=== PATIENT | male | born 1950 | race African-American/Black ===

== ENCOUNTER 2018-12-23 09:30 | Inpatient (IN) | payer MEDICARE, MEDICAID ==
[2018-12-23 10:15] LABS: #Lymphocytes 0.8 thou/uL (1.20-3.40); #Monocytes 0.3 thou/uL (0.11-0.59); #Neutrophils 4.6 thou/uL (1.40-6.50); %Basophils 0.7 % (0.0-1.0); %Eosinophils 0.7 % (0.0-10.0); %Lymphocytes 13.9 % (21.0-51.0); %Monocytes 4.7 % (0.0-10.0); Hemoglobin 13.2 g/dL (14.0-18.0); Mean Corpuscular HGB CONC 34.2 g/dL (32.0-36.0); Mean Corpuscular Hemoglobin 32.6 pg (27.0-31.0); Mean Corpuscular Volume 95.5 fL (78.0-98.0); Mean Platelet Volume 6.3 fL (7.4-10.4); Platelet Count 249 thou/uL (130-400); RBC Distribution Width 11.9 % (11.5-14.5); Red Blood Cell (RBC) Count 4.06 mill/uL (4.70-6.10); White Blood Cell (WBC) Count 5.8 thou/uL (4.8-10.8)
--- NOTE | 2018-12-23 10:18 | RAD ---
EXAM: Portable chest PROVIDED CLINICAL HISTORY: Altered mental status COMPARISON: None FINDINGS: Cardiac and mediastinal silhouette is within normal limits. No focal consolidation, pleural fluid or pneumothorax evident. IMPRESSION: No evidence for an acute cardiopulmonary process.
[2018-12-23 10:29] LABS: ALT (SGPT) 41 U/L (8-55); AST (SGOT) 49 U/L (5-34); Acetaminophen Less than 6.0 mcg/mL (10.0-30.0); Alcohol Less than 10 mg/dL (Less than 10); Alkaline Phosphatase 86 U/L (40-110); Anion Gap 19 mmol/L (10-20); BUN (Urea Nitrogen) 22 mg/dL (8.4-25.7); Bilirubin, Total 0.4 mg/dL (0.2-1.2); Calc. Creatinine Clearance 0 mL/min (70-130); Calcium 9.3 mg/dL (7.8-10.44); Carbon Dioxide 21 mmol/L (22-29); Chloride 98 mmol/L (98-107); Estimated GFR-MDRD 63; Globulin 3.6 g/dL (2.4-3.5); Glucose 82 mg/dL (70-105); Lipase 34 U/L (8-78); Protein, Total 7.6 g/dL (6.0-8.3); Salicylate Less than 8.0 mg/dL (15.0-30.0); Sodium 134 mmol/L (136-145)
[2018-12-23 10:47] LABS: CKMB 19.6 ng/mL (0-6.6)
[2018-12-23] MEDS ORDERED: Aspirin Chewable 81 MG TAB ONE (11:06)
--- NOTE | 2018-12-23 11:07 | CT ---
EXAM: CT Brain WO Con PROVIDED CLINICAL HISTORY: Altered mental status COMPARISON: None FINDINGS: Postoperative changes of prior left temporal craniectomy redemonstrated. Multiple surgical clips are associated with this region, producing beam hardening artifact that limits evaluation. There is no evidence for hydrocephalus. Encephalomalacia involving portions of the temporal and left occipital re gion are suspected. There is no evidence for mass-producing intracranial hemorrhage. 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 Areas of diminished attenuation involving the left frontal and right parietal white matter compatible with age-indeterminate ischemia. IMPRESSION: Limited study without evidence for mass-producing intracranial hemorrhage.
[2018-12-23] MEDS ORDERED: Acetaminophen 325 MG TAB PO PRN (11:40)
[2018-12-23] MEDS ORDERED: Ondansetron PF 4 MG/2 ML Vial IVP PRN (11:40)
[2018-12-23] MEDS ORDERED: Bisacodyl 10 MG SUPP PR PRN (11:40)
[2018-12-23] MEDS ORDERED: Senokot S 8.6-50 MG TAB PO PRN (11:40)
[2018-12-23] MEDS ORDERED: Guaifenesin DM 100-10/5 ML UDCUP PO PRN (11:40)
[2018-12-23] MEDS ORDERED: Morphine 2 MG/ML SYRINGE SLOW IVP PRN (11:40)
[2018-12-23] MEDS ORDERED: Multivitamins, Adult 10 ML, Folic Acid 1 MG, Thiamine HCl 100 MG in Dextrose 5 %-0.45 %... IV SCH (12:00)
--- NOTE | 2018-12-23 12:17 | HP ---
REASON FOR ADMISSION: Altered mental state, rhabdomyolysis, hypothermia. HISTORY OF PRESENT ILLNESS: Please note the patient is not oriented and majority of this history is obtained by talking to ER physician and EMS records. The patient does not know his name nor is he oriented. He was found sitting in front of the [facility]. [place] [employer] called EMS, and the patient was brought here. He is disheveled at present. He is smelling of urine. He has no complaints of any aches or pains. His temperature was 94 axillary on arrival. He is currently on a Omar Hugger and slowly getting rewarmed. He is seen moving both upper extremities freely. He does not follow verbal stimuli. He does move his head and neck freely and follows me around the room. 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 CURRENT MEDICATIONS: Not known. ALLERGIES: NOT KNOWN. PERSONAL AND FAMILY HISTORY: Cannot be obtained as the patient is not oriented at present. REVIEW OF SYSTEMS: Cannot be obtained as the patient is not oriented. PHYSICAL EXAMINATION: GENERAL: The patient is approximately around 50 to 60 years old, who is unknown at present. He is in acute distress from shivering. VITAL SIGNS: Blood pressure 116/86, pulse 66 per minute, respiratory rate 18 per minute, temperature on arrival was 94.7 axillary, saturating 98% on room air. NECK: Supple. No elevated JVD. HEENT: Eyes; extraocular muscles intact. 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 Oral cavity, mucous membranes are dry. No exudates or congestion. CARDIOVASCULAR SYSTEM: S1 and S2 heard. Regular rhythm. RESPIRATORY SYSTEM: Air entry 1+ bilateral. Scattered rhonchi plus bilateral. No rales or wheezes. ABDOMEN: Soft. Bowel sounds heard. No tenderness, rigidity, or guarding. EXTREMITIES: No peripheral edema or calf tenderness. VASCULAR SYSTEM: Peripheral pulses 1+ bilateral. No ischemic ulcerations or gangrene. CENTRAL NERVOUS SYSTEM: No gross focal motor deficits noted. PSYCHIATRIC SYSTEMS: Cannot be assessed as the patient is not oriented at present. LABORATORY DATA: EKG done shows sinus rhythm at 69 beats per minute. There is poor R-wave progression seen and mild LVH. White count of 5, hemoglobin 13, hematocrit 38, platelet count is 249, MCV is 95 with 80% neutrophils. Sodium 134, serum bicarb 21, BUN 22, creatinine 1.1, serum glucose 82. AST 49, ALT 41, alkaline phosphatase 86, ammonia levels of 39. CK levels 1038. CK-MB 19.6. Troponin I 0.06. Albumin is 4.0. Lipase is 34. TSH 1.52. Plasma alcohol less than 10. Urinalysis and urine drug screen are pending at present. CLINICAL IMPRESSION AND PLAN: The patient will be admitted to telemetry for hypothermia, acute encephalopathy, rhabdomyolysis. He will be on D5 water to alternate with a banana bag. Urinalysis and urine drug screen will be shortly obtained. It is unclear the exact nature of his altered mental state at present. He has rhabdomyolysis and will be aggressively hydrated. The patient is also getting rewarmed. His initial temperature was 94 degrees on arrival. He will be on nitro paste half inch q.8 hourly and aspirin 81 mg daily. We will also place him on DuoNeb. Echo with 2D Doppler for LV function, lipid profile in the morning, and we will follow serial troponins. He will be on liquid diet for now until the patient is fully oriented. Physical Therapy, Occupational Therapy, and Case Management consultations will be requested. Case Management especially for identification purposes and to know whereabouts of his relatives for discharge planning. Job ID: [id number] MTDD
[2018-12-23 14:15] VITALS: BMI 24.3
[2018-12-23 14:28] LABS: Bacteria/HPF 1+ HPF (None Seen); Bilirubin Negative (Negative); Blood, Urine Trace (Negative); Clarity Clear (Clear); Glucose, Urine (Dipstick) Normal (Negative); Leukocyte Negative Leu/uL (Negative); Nitrite Negative (Negative); Protein, Urine (Dipstick) 100 mg/dL (Neg-Trace); RBC/HPF 0-3 HPF (0-3); Squamous Epithelial 0-3 HPF (0-3); Urobilinogen Normal mg/dL (Less than 2); WBC/HPF 0-3 HPF (0-3)
[2018-12-23 14:29] LABS: Urine Culture Reflex Yes Yes
[2018-12-23 14:33] LABS: Amphetamine Not Detected (NotDetected); Barbiturates Screen Not Detected (NotDetected); Benzodiazepine Screen Not Detected (NotDetected); Cocaine Metabolite Screen Not Detected (NotDetected); Medtox Control Line Valid? VALID (VALID); Medtox Reader # READER 1; Methadone Not Detected (NotDetected); Methamphetamine Not Detected (NotDetected); Opiate Screen Not Detected (NotDetected); Oxycodone Screen Not Detected (NotDetected); Phencyclidine (PCP) Not Detected (NotDetected); THC/Cannabinoid Screen Not Detected (NotDetected); Tricyclic Screen Not Detected (NotDetected)
[2018-12-23 14:59] LABS: Troponin I 0.408 ng/mL (< 0.028)
[2018-12-23] MEDS: Nitroglycerin 2% Ointment 1 INCH/1 GM Packet TOP SCH ×2 (15:52→21:15)
[2018-12-23 16:52] LABS: Troponin I 0.537 ng/mL (< 0.028)
[2018-12-23] MEDS: Dextrose 5 % And 0.9 % NaCl 1,000 ML IV SCH (19:06)
[2018-12-23] MEDS: Famotidine 20 MG TAB PO SCH (21:15)
[2018-12-24 06:00] LABS: #Eosinphils 0.1 thou/uL (0.0-0.7); #Lymphocytes 1.7 thou/uL (1.20-3.40); #Monocytes 0.4 thou/uL (0.11-0.59); %Basophils 0.6 % (0.0-1.0); %Eosinophils 1.5 % (0.0-10.0); %Lymphocytes 40.7 % (21.0-51.0); %Monocytes 10.2 % (0.0-10.0); Hemoglobin 11.7 g/dL (14.0-18.0); Mean Corpuscular HGB CONC 33.8 g/dL (32.0-36.0); Mean Corpuscular Hemoglobin 32.5 pg (27.0-31.0); Mean Platelet Volume 6.6 fL (7.4-10.4); Platelet Count 237 thou/uL (130-400); RBC Distribution Width 12.1 % (11.5-14.5); Red Blood Cell (RBC) Count 3.61 mill/uL (4.70-6.10); White Blood Cell (WBC) Count 4.3 thou/uL (4.8-10.8)
[2018-12-24 06:09] LABS: ALT (SGPT) 27 U/L (8-55); AST (SGOT) 38 U/L (5-34); Albumin 3.6 g/dL (3.5-5.0); Alkaline Phosphatase 77 U/L (40-110); Anion Gap 12 mmol/L (10-20); BUN (Urea Nitrogen) 24 mg/dL (8.4-25.7); Bilirubin, Total 0.4 mg/dL (0.2-1.2); Calc. Creatinine Clearance 58 mL/min (70-130); Calcium 8.7 mg/dL (7.8-10.44); Carbon Dioxide 25 mmol/L (22-29); Cardiac Risk 3.8 (Less than 4.5); Chloride 105 mmol/L (98-107); Cholesterol 182 mg/dl (< 200 Desired); Estimated GFR-MDRD 65; Globulin 3.1 g/dL (2.4-3.5); Glucose 91 mg/dL (70-105); HDL Cholesterol 48 mg/dL (>60 Neg Risk); LDL Cholesterol, Calculated 117 mg/dL; Protein, Total 6.7 g/dL (6.0-8.3); Sodium 138 mmol/L (136-145); Triglycerides 87 mg/dL (Less than 150)
[2018-12-24] MEDS: Nitroglycerin 2% Ointment 1 INCH/1 GM Packet TOP SCH (06:16)
[2018-12-24] MEDS: Dextrose 5 % And 0.9 % NaCl 1,000 ML IV SCH (06:24)
[2018-12-24] MEDS ORDERED: FLU VACC QS2019-20(6MOS UP)/PF 60 MCG/0.5 ML SYRINGE IM ONE (09:00)
[2018-12-24] MEDS: Enoxaparin Sodium 40 MG/0.4 ML SYRINGE SC SCH (09:24)
[2018-12-24] MEDS: Aspirin Chewable 81 MG TAB PO SCH (09:25)
[2018-12-24] MEDS: Famotidine 20 MG TAB PO SCH ×2 (09:25→20:42)
[2018-12-24] MEDS: Metoprolol Tartrate 25 MG TAB PO SCH ×2 (09:25→20:42)
--- NOTE | 2018-12-24 11:15 | PDOC.HOSPP ---
- Subjective Encounter Date: 12/24/18 Encounter Time: 08:20 Subjective: awakens easily, ate his dinner well per staff his name is Frankie León has caregivers who make meals for him and he has a place to stay per staff is moving all extremities - Objective Vital Signs & Weight: Vital Signs (12 hours) Temp Pulse Resp BP Pulse Ox 12/24/18 08:00 98.5 F 59 L 16 99 12/24/18 07:22 65 16 100 12/24/18 04:00 97.5 F L 68 16 153/95 H 98 12/24/18 00:00 97.9 F 70 20 156/98 H 97 12/23/18 23:45 66 16 Weight Weight 155 lb 9.6 oz Result Diagrams: 12/24/18 05:19 12/24/18 05:19 Hospitalist ROS - Medication Medications: Active Medications Generic Name Dose Route Start Last Admin Trade Name Freq PRN Reason Stop Dose Admin Albuterol/Ipratropium 3 ml 12/23/18 13:00 12/24/18 07:22 Duoneb NEB 3 ml [id number] WILL Administration Aspirin 81 mg 12/24/18 09:00 12/24/18 09:25 Aspirin Chewable PO 81 mg DAILY WILL Administration Enoxaparin Sodium 40 mg 12/24/18 09:00 12/24/18 09:24 Lovenox SC 40 mg 0900 WILL Administration Famotidine 20 mg 12/23/18 21:00 12/24/18 09:25 Pepcid PO 20 mg BID WILL Administration Metoprolol Tartrate 25 mg 12/24/18 09:00 12/24/18 09:25 Lopressor PO 25 mg BID WILL Administration - Exam General Appearance: NAD, awake alert Eye: anicteric sclera Eye - other findings: right eye blindness ENT: no oropharyngeal lesions, moist mucosa Neck: supple, no JVD Heart: RRR, no murmur Respiratory: no wheezes, no rales Gastrointestinal: soft, non-tender, non-distended, normal bowel sounds Extremities: no cyanosis, no edema Neurological: cranial nerve grossly intact, no focal deficits Hosp A/P (1) Hypothermia Code(s): T68.XXXA - HYPOTHERMIA, INITIAL ENCOUNTER Status: Resolved (2) Rhabdomyolysis Code(s): M62.82 - RHABDOMYOLYSIS Status: Acute (3) Acute metabolic encephalopathy Code(s): G93.41 - METABOLIC ENCEPHALOPATHY Status: Resolved (4) HTN (hypertension) Code(s): I10 - ESSENTIAL (PRIMARY) HYPERTENSION Status: Acute Qualifiers: Hypertension type: essential hypertension Qualified Code(s): I10 - Essential (primary) hypertension (5) Intellectual disability Code(s): F79 - UNSPECIFIED INTELLECTUAL DISABILITIES Status: Chronic (6) H/O: CVA (cerebrovascular accident) Code(s): Z86.73 - PRSNL HX OF TIA (TIA), AND CEREB INFRC W/O RESID DEFICITS Status: Chronic (7) Dyslipidemia Code(s): E78.5 - HYPERLIPIDEMIA, UNSPECIFIED Status: Acute - Plan hypothermia is resolved, current temp of around 97 degrees has underlying intellectual disability per caregivers currently at cognitive baseline to ambulate with PT as tolerated is on aspirin, low dose lopressor and lipitor echo shows normal ef dc plan in am to home encourage po fluid and oral solid intake dc iv fluids multivitamin, folic acid and thiamine hemostable
[2018-12-24] MEDS: Atorvastatin Calcium 20 MG TAB PO SCH (20:42)
[2018-12-25 08:29] LABS: ALT (SGPT) 27 U/L (8-55); AST (SGOT) 35 U/L (5-34); Albumin 3.6 g/dL (3.5-5.0); Alkaline Phosphatase 71 U/L (40-110); Anion Gap 11 mmol/L (10-20); BUN (Urea Nitrogen) 20 mg/dL (8.4-25.7); Bilirubin, Total 0.5 mg/dL (0.2-1.2); CK (CPK) 746 U/L (30-200); Calc. Creatinine Clearance 57 mL/min (70-130); Carbon Dioxide 25 mmol/L (22-29); Chloride 107 mmol/L (98-107); Estimated GFR-MDRD 64; Globulin 3.3 g/dL (2.4-3.5); Glucose 80 mg/dL (70-105); Potassium 4.2 mmol/L (3.5-5.1); Protein, Total 6.9 g/dL (6.0-8.3); Sodium 139 mmol/L (136-145)
[2018-12-25] MEDS: Enoxaparin Sodium 40 MG/0.4 ML SYRINGE SC SCH (08:30)
[2018-12-25] MEDS: Multivitamin W/ Minerals 1 TAB PO SCH (08:30)
[2018-12-25] MEDS: Thiamine 100 MG TAB PO SCH (08:30)
[2018-12-25] MEDS: Famotidine 20 MG TAB PO SCH ×2 (08:30→20:53)
[2018-12-25] MEDS: Metoprolol Tartrate 25 MG TAB PO SCH ×2 (08:31→20:53)
[2018-12-25] MEDS: Folic Acid 1 MG TAB PO SCH (08:31)
[2018-12-25] MEDS: Aspirin Chewable 81 MG TAB PO SCH (08:31)
--- NOTE | 2018-12-25 12:55 | PDOC.HOSPP ---
- Subjective Encounter Date: 12/25/18 Encounter Time: 11:15 Subjective: awake, no sob, says a few words per staff he is eating well is not ambulating well, needs help - Objective Vital Signs & Weight: Vital Signs (12 hours) Temp Pulse Pulse Resp BP BP BP 12/25/18 12:42 58 L 16 12/25/18 12:29 152/86 H 12/25/18 12:00 97.3 F L 62 19 12/25/18 09:36 63 152/88 H 148/97 H 12/25/18 08:22 12/25/18 07:58 98.1 F 60 12 180/102 H 12/25/18 07:10 60 14 12/25/18 04:00 98.1 F 64 16 150/106 H Pulse Ox 12/25/18 12:42 99 12/25/18 12:29 12/25/18 12:00 97 12/25/18 09:36 12/25/18 08:22 99 12/25/18 07:58 99 12/25/18 07:10 100 12/25/18 04:00 100 Weight Weight 155 lb 9.6 oz I&O: 12/24/18 12/25/18 12/26/18 06:59 06:59 06:59 Intake Total 240 Balance 240 Result Diagrams: 12/24/18 05:19 12/25/18 08:01 Hospitalist ROS - Medication Medications: Active Medications Generic Name Dose Route Start Last Admin Trade Name Freq PRN Reason Stop Dose Admin Albuterol/Ipratropium 3 ml 12/23/18 13:00 12/25/18 12:42 Duoneb NEB 3 ml [id number] WILL Administration Aspirin 81 mg 12/24/18 09:00 12/25/18 08:31 Aspirin Chewable PO 81 mg DAILY WILL Administration Atorvastatin Calcium 20 mg 12/24/18 21:00 12/24/18 20:42 Lipitor PO 20 mg HS WILL Administration Enoxaparin Sodium 40 mg 12/24/18 09:00 12/25/18 08:30 Lovenox SC 40 mg 0900 WILL Administration Famotidine 20 mg 12/23/18 21:00 12/25/18 08:30 Pepcid PO 20 mg BID WILL Administration Folic Acid 1 mg 12/25/18 09:00 12/25/18 08:31 Folvite PO 1 mg DAILY WILL Administration Iron/Minerals/Multivitamins 1 tab 12/25/18 09:00 12/25/18 08:30 Theragran M PO 1 tab DAILY WILL Administration Metoprolol Tartrate 25 mg 12/24/18 09:00 12/25/18 08:31 Lopressor PO 25 mg BID WILL Administration Thiamine HCl 100 mg 12/25/18 09:00 12/25/18 08:30 Thiamine PO 100 mg DAILY WILL Administration - Exam General Appearance: NAD, awake alert Eye: PERRL, anicteric sclera ENT: no oropharyngeal lesions, moist mucosa Neck: supple, no JVD Heart: RRR, no murmur Respiratory: no wheezes, no rales Gastrointestinal: soft, non-tender, non-distended, normal bowel sounds Extremities: no cyanosis, no edema Neurological: cranial nerve grossly intact, no focal deficits Hosp A/P (1) Hypothermia Code(s): T68.XXXA - HYPOTHERMIA, INITIAL ENCOUNTER Status: Resolved (2) Rhabdomyolysis Code(s): M62.82 - RHABDOMYOLYSIS Status: Acute (3) Acute metabolic encephalopathy Code(s): G93.41 - METABOLIC ENCEPHALOPATHY Status: Resolved (4) HTN (hypertension) Code(s): I10 - ESSENTIAL (PRIMARY) HYPERTENSION Status: Acute Qualifiers: Hypertension type: essential hypertension Qualified Code(s): I10 - Essential (primary) hypertension (5) Intellectual disability Code(s): F79 - UNSPECIFIED INTELLECTUAL DISABILITIES Status: Chronic (6) H/O: CVA (cerebrovascular accident) Code(s): Z86.73 - PRSNL HX OF TIA (TIA), AND CEREB INFRC W/O RESID DEFICITS Status: Chronic (7) Dyslipidemia Code(s): E78.5 - HYPERLIPIDEMIA, UNSPECIFIED Status: Acute - Plan hypothermia is resolved. has underlying intellectual disability per caregivers currently at cognitive baseline to ambulate with PT as tolerated is on aspirin, low dose lopressor and lipitor echo shows normal ef dc plan likely to rehab encourage po fluid and oral solid intake restart iv fluids, ck is still around 700 multivitamin, folic acid and thiamine hemostable
[2018-12-25] MEDS: Sodium Chloride 0.9% 1,000 ML IV SCH ×2 (13:41→22:27)
[2018-12-25] MEDS: Atorvastatin Calcium 20 MG TAB PO SCH (20:53)
[2018-12-25] MEDS ORDERED: hydrALAZINE 20 MG/ML VIAL SLOW IVP PRN (22:04)
[2018-12-26] MEDS ORDERED: EPINEPHrine 1 MG/ML AMP ONE (03:45)
[2018-12-26 07:58] LABS: Anion Gap 10 mmol/L (10-20); BUN (Urea Nitrogen) 17 mg/dL (8.4-25.7); CK (CPK) 438 U/L (30-200); Calc. Creatinine Clearance 62 mL/min (70-130); Calcium 9.3 mg/dL (7.8-10.44); Carbon Dioxide 24 mmol/L (22-29); Chloride 108 mmol/L (98-107); Estimated GFR-MDRD 71; Glucose 77 mg/dL (70-105); Potassium 4.4 mmol/L (3.5-5.1); Sodium 138 mmol/L (136-145)
[2018-12-26] MEDS: Enoxaparin Sodium 40 MG/0.4 ML SYRINGE SC SCH (08:40)
[2018-12-26] MEDS: Folic Acid 1 MG TAB PO SCH (08:41)
[2018-12-26] MEDS: Metoprolol Tartrate 25 MG TAB PO SCH (08:41)
[2018-12-26] MEDS: Famotidine 20 MG TAB PO SCH (08:41)
[2018-12-26] MEDS: Aspirin Chewable 81 MG TAB PO SCH (08:41)
[2018-12-26] MEDS: Multivitamin W/ Minerals 1 TAB PO SCH (08:41)
[2018-12-26] MEDS: Thiamine 100 MG TAB PO SCH (08:41)
[2018-12-26] MEDS ORDERED: Sodium Chloride 0.9% 1,000 ML IV SCH (09:15)
[2018-12-26 14:44] VITALS: BP 168/84
[2018-12-26 15:32] VITALS: TEMP 97.7
--- NOTE | 2018-12-26 18:24 | DIS ---
DATE OF ADMISSION: 12/23/2018 DATE OF DISCHARGE: 12/26/2018 DISCHARGE DISPOSITION: To home. PRIMARY DISCHARGE DIAGNOSES: Hypothermia on arrival, resolved; acute metabolic encephalopathy on arrival, resolved; rhabdomyolysis, resolving. SECONDARY DISCHARGE DIAGNOSES: Hypertension, history of intellectual disability , history of cerebrovascular accident, dyslipidemia. PROCEDURES DONE DURING HOSPITALIZATION: Echo with 2D Doppler showed EF of 60% to 65%. There was diastolic dysfunction. CT brain without contrast done showed no mass or hemorrhage. He has had prior craniectomy in the left temporal area with encephalomalacia seen in that area. The patient has had possible left frontal and right parietal old age indeterminate ischemia. Chest x-ray showed no acute cardiopulmonary process. Urine culture, no growth. White count of 4.3, hemoglobin and hematocrit 11 and 34, platelet count 237, MCV is 96. BUN 17, creatinine 1.26 on the day of discharge. CK levels 438 on the day of discharge. Total cholesterol 182, triglycerides 87, LDL 117, HDL 48. TSH 1.52. CK levels of 1038 on the day of admission. Urine drug screen was negative. Plasma alcohol less than 10. DISCHARGE MEDICATIONS: 1. Aspirin 81 mg p.o. daily. 2. Lipitor 20 mg p.o. at bedtime. 3. Folic acid 1 mg p.o. daily. 4. Lopressor 25 mg twice daily. 5. Multivitamin one tablet once daily. DISCHARGE PLAN: The patient to follow up with his primary care physician in 1 week. The patient has been advised to see Dr. Erin Lake, her primary care physician in a week. BRIEF COURSE DURING HOSPITALIZATION: The patient initially was brought to emergency room after [place] [facility] called EMS as the patient was sitting in front of [facility] in the night. On arrival, the patient was found to have had a temperature of 94 and was not oriented. He was placed on a Omar Hugger and gently hydrated as the patient had rhabdomyolysis. He was initially admitted as a Saul Wilcox as the patient could not reveal his name. His whereabouts was not known for at least 24 hours after hospitalization. He has had slow and gentle recovery. The patient's hypothermia is completely resolved. The patient is at his cognitive baseline per caregivers, who knows him for the last 10 years. He is currently staying in a rented place with his caregivers. Case Management consultation was requested for safe discharge planning. Prior to discharge, he is ambulating around 200 feet. Per Case Management advice, the patient is being discharged to go home with Marie Natty and Joshua, his caregivers. He is otherwise hemodynamically stable. The patient at baseline says one or two words. He has underlying intellectual disability versus prior brain injury. He is also blind in one eye. He is otherwise neurologically and hemodynamically stable for discharge today. Please note, I have seen and examined the patient on the day of discharge. Job ID: [id number] [facility]
--- NOTE | 2018-12-28 04:10 | PQF ---
Frankie Lopes VINAYA KUMAR MD [id number] [facility] [place], [id number] CLINICAL DOCUMENTATION CLARIFICATION FORM: POST DISCHARGE Addendum to original discharge summary date: ____ Late entry note date: __ DATE:12/28/18 ATTN: Anitra Mc Please exercise your independent, professional judgment in responding to the clarification form. Clinical indicators are provided on the bottom of this form for your review In your clinical opinion based on clinical findings below, can you please identify type of Hypothermia if : Please check appropriate box(s): [ ] Accidental Hypothermia [ x ] Hypothermia associated with low temperature environment [ ] Hypothermia not associated with low temperature environment [ ] Hypothermia NOS [ ] Other condition, please specify: [ ] Unable to determine In addition, please specify: Present on Admission (POA): [x ] Yes [ ] No [ ] Unable to determine For continuity of documentation, please document condition throughout progress notes and discharge summary. Thank You. CLINICAL INDICATORS - SIGNS / SYMPTOMS / LABS ED provider p2 12/23 Pt presents to ED via EMS for AMS after walking into [facility] this AM ED provider p2 12/23 Pt reports his last names if Whitmore and walked into FD because of the hot sun. high of 66F in [place] today H&P p1 12/23 Dr Teran His temperature was 94 axillary on arrival RISK FACTORS H&P p2 12/23 - Acute Encephalopathy H&P p2 12/23 - Rhabdomyolysis TREATMENTS: H&P 12/23 - Omar hugger H&P p2 12/23 - on aggressive hydration APR 24 on D5 water (This form is maintained as a part of the permanent medical record) 2014 [employer] All Rights Reserved [email or web address] [not provided] MTDD
== END 2018-12-26 17:24 | disposition home or self-care (01) | DRG 922 ==
LOC: ERS 09:30 → MERGE 13:00 → 2SE 13:00 → EDBD 13:00
PROVIDERS: ADMIT Internal Medicine; ATTEND Internal Medicine
PROC: 3E0234Z Introduction of Serum, Toxoid and Vaccine into Muscle, Percutaneous Approach (ICD-10-PCS; principal; 2018-12-23)
DX: T68.XXXA Hypothermia, initial encounter (principal); G93.41 Metabolic encephalopathy; M62.82 Rhabdomyolysis; I10 Essential (primary) hypertension; E78.5 Hyperlipidemia, unspecified; F79 Unspecified intellectual disabilities; X58.XXXA Exposure to other specified factors, initial encounter; Z86.73 Personal history of transient ischemic attack (TIA), and cerebral infarction without residual deficits; Z23 Encounter for immunization
CPT/HCPCS: 36415; 70450; 71045; 80048; 80053; 80061; 80306; 80307; 81001; 82140; 82550; 82553; 83690; 84443; 84484; 85025; 87086; 90471; 90686; 93005; 93306; 94640; 96360; G0008; J0171; J0360; J1650; J3411; J7042; J7620